=== PATIENT | male | born 1985 | race Caucasian/White ===

== ENCOUNTER 2022-01-09 12:10 | Emergency (ER) | payer BC ==
[2022-01-09] MEDS ORDERED: CYCLOBENZAPRINE10 MG PO (13:01)
== END 2022-01-09 13:22 | disposition home or self-care (01) ==
LOC: ER1 12:10
DX: M53.3 Sacrococcygeal disorders, not elsewhere classified (principal)
CPT/HCPCS: 96372; 99283; J1885